=== PATIENT | female | born 1950 | race Caucasian/White ===

== ENCOUNTER → 2021-02-21 | Outpatient (CLI) | payer MEDICARE ==
[~2021-02-21] MED LIST: BENICAR PO; BRILINTA 90 MG90 MG PO; CARDIZEM CD360 MG PO; CATAPRES 0.1MG0.1 MG PO; CYMBALTA 30 MG30 MG PO; ECOTRIN81 MG PO; HYGROTON TAB 2525 MG PO; KLOR-CON M1010 MEQ PO; LIDOCAINE PAIN1 EACH TP; LOPRESSOR 25 MG25 MG PO; MACROBID 100 M100 MG PO; NEURONTIN 400400 MG PO; RANEXA500 MG PO; SIMVASTATIN40 MG PO; ULTRAM50 MG PO; ZOFRAN4 MG PO
[2021-02-21 13:27] LABS: HEMOGLOBIN 13.7 gm/dl (12.3-15.3); RED BLOOD COUNT 4.53 M/UL (4.00-5.10); WHITE BLOOD COUNT 5.6 K/UL (4.5-11.0)
[2021-02-21 15:24] LABS: BUN/CREATININE RATIO 23 (0-10)
== END ==
LOC: LAB 13:08
PROVIDERS: Family Medicine
DX: R53.83 Other fatigue (principal); E78.5 Hyperlipidemia, unspecified; E55.9 Vitamin D deficiency, unspecified
CPT/HCPCS: 36415; 80053; 80061; 84439; 84443; 85027

== ENCOUNTER → 2022-04-23 | Outpatient (CLI) | payer MEDICARE | LOC: KOH-I 11:55 | DX: M54.50 Low back pain, unspecified (principal); M47.812 Spondylosis without myelopathy or radiculopathy, cervical region; M47.816 Spondylosis without myelopathy or radiculopathy, lumbar region | CPT/HCPCS: 72040; 72100 ==